=== PATIENT | male | born 1975 | race Caucasian/White ===

== ENCOUNTER 2022-07-01 08:39 | Inpatient (IN) | payer MEDICAID ==
[2022-07-01] VITALS (15 sets, daily range): BP systolic 120–143; BP diastolic 73–95
[~2022-07-01] VITALS: Ht 162.6 cm; Wt 96.6 kg
[~2022-07-01 08:39] MED LIST: METF-440 PO
--- NOTE | 2022-07-01 08:50 | NUR ---
BIB C/O DIZZINESS, HEADACHE, SOB, COUGH, NAUSEA, AND VOMITING. PT STATED HE STARTED TO FEEL THESE SYMPTOMS SINCE FRIDAY AND BECAME WORSE YESTERDAY. TOOK COVID TEST AT HOME, NEGATIVE. PT HAS HISTORY OF DKA, TAKE METFORMIN AND COMPLIANT WITH MEDEIAITON BUT STATES THAT HE DOES NOT CHECK HIS BLOOD SUGAR REGULARY. BLOOD SUAGR WAS 429 UPON ARRIVAL, MD AWARE. PT ATTACHED TO MONITOR, DR NORIEGA AT BEDSIDE. AWAITING MD ORDERS.
--- NOTE | 2022-07-01 08:52 | NUR ---
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 URINAL PROVIDED AT BEDSIDE.
--- NOTE | 2022-07-01 08:55 | NUR ---
IVONE Beck AC 20G. LABS DRAWN AND SENT.
[2022-07-01] MEDS ORDERED: IV NS 0.9% 1,000 ML BAG IV ONE ×2 (09:00→10:00)
[2022-07-01] MEDS ORDERED: ONDANSETRON HCL/PF 4 MG/2 ML VIAL IVP ONE (09:00)
[2022-07-01] MEDS ORDERED: ONDANSETRON HCL/PF 4 MG/2 ML VIAL ONE (09:00)
[2022-07-01 09:19] LABS: BASOPHILS % (AUTO) 0.4 % (0.0-2.0); EOSINOPHILS % (AUTO) 4.3 % (0.0-6.0); HEMATOCRIT 48 % (39-51); HEMOGLOBIN 16.4 g/dL (13.5-17.5); LYMPHOCYTES # (AUTO) 2.1 K/uL (0.8-4.8); LYMPHOCYTES % (AUTO) 21.8 % (20.0-44.0); MEAN CORPUSCULAR HGB CONC 34 g/dl (31.0-36.0); MEAN CORPUSCULAR VOLUME 93 fL (80-96); MONOCYTES # (AUTO) 0.5 K/uL (0.1-1.30); MONOCYTES % (AUTO) 5.6 % (2.0-12.0); NEUTROPHILS # (AUTO) 6.5 K/uL (1.8-8.9); NEUTROPHILS % (AUTO) 67.9 % (43.0-81.0); PLATELET COUNT (AUTO) 247 K/uL (150-450); RED BLOOD CELL COUNT(AUTO) 5.17 MIL/uL (4.5-6.0); WHITE BLOOD COUNT (AUTO) 9.5 K/uL (4.3-11.0)
--- NOTE | 2022-07-01 09:38 | NUR ---
Jojo sepulveda in [facility] - 07/01/22 at 1001 by VALENTÍN GAUTHIER (WIFE) [phone]
[2022-07-01 09:39] LABS: ALANINE AMINOTRANSFERASE 50 U/L (12-78); ALBUMIN 4.5 g/dL (3.4-5.0); ALKALINE PHOSPHATASE 138 U/L (46-116); ASPARTATE AMINOTRANSFERASE 23 U/L (15-37); BILIRUBIN,DIRECT 0.2 mg/dL (0.0-0.2); BILIRUBIN,TOTAL 0.9 mg/dL (0.2-1.0); CALCIUM, SERUM 9.2 mg/dL (8.5-10.1); CARBON DIOXIDE 12 mmol/L (21-32); CHLORIDE 96 mmol/L (98-107); CREATININE 1.3 mg/dL (0.6-1.3); POTASSIUM 4.4 mmol/L (3.5-5.1); SODIUM SERUM 129 mmol/L (136-145); UREA NITROGEN, BLOOD 13 mg/dL (7-18)
[2022-07-01 09:41] LABS: GLUCOSE 442 mg/dL (74-106)
[2022-07-01] MEDS ORDERED: ATOR10TA PO (09:59)
[2022-07-01] MEDS ORDERED: METF-440 PO (09:59)
[2022-07-01] MEDS ORDERED: INSULIN REGULAR, HUMAN 100 UNITS in IV NS 0.9% 100 ML IV PRN ×2 (10:00)
--- NOTE | 2022-07-01 10:05 | NUR ---
URINE COLLECTED AND SENT
[2022-07-01 10:36] LABS: CALCIUM, SERUM 8.2 mg/dL (8.5-10.1); CREATININE 1.2 mg/dL (0.6-1.3); POTASSIUM 4.6 mmol/L (3.5-5.1)
--- NOTE | 2022-07-01 10:39 | NUR ---
CALLED NURSING SUP REGARDING PT BED
[2022-07-01] MEDS ORDERED: ACETAMINOPHEN ES 500 MG TABLET ONE (10:49)
[2022-07-01] MEDS ORDERED: ACETAMINOPHEN ES 500 MG TABLET PO ONE (11:00)
--- NOTE | 2022-07-01 11:13 | NUR ---
room [facility]
--- NOTE | 2022-07-01 11:23 | NUR ---
REPORT GIVEN TO ABDIEL FOR KATIA
[2022-07-01] MEDS ORDERED: INSULIN REGULAR, HUMAN 100 UNIT in IV NS 0.9% 99 ML IV PRN ×2 (11:30)
[2022-07-01] MEDS ORDERED: ONDANSETRON HCL/PF 4 MG/2 ML VIAL IVP PRN (11:30)
[2022-07-01] MEDS ORDERED: MAG HYDROX/AL HYDROX/SIMETH 30 ML UDC PO PRN (11:30)
[2022-07-01] MEDS ORDERED: ACETAMINOPHEN 325 MG TABLET PO PRN (11:30)
[2022-07-01] MEDS ORDERED: ZOLPIDEM TARTRATE 5 MG TABLET PO PRN (11:30)
[2022-07-01] MEDS ORDERED: MAGNESIUM HYDROXIDE 30 ML UDC PO PRN (11:30)
[2022-07-01] MEDS ORDERED: Z GUARD REMEDY 4 OZ OINT TP PRN (11:30)
[2022-07-01 11:32] LABS: BILIRUBIN,URINE NEGATIVE (NEGATIVE); COLOR,URINE YELLOW (YELLOW); LEUKOCYTE ESTERASE ,URINE NEGATIVE (NEGATIVE); NITRITE, URINE NEGATIVE (NEGATIVE); PH,URINE 5.5 (5.0-8.0); PROTEIN,URINE TRACE mg/dl (NEGATIVE); UGLUCOSE >=1000 mg/dL (NEGATIVE); UROBILINOGEN,URINE 0.2 EU/dL (0.2)
--- NOTE | 2022-07-01 11:37 | NUR ---
BLOOD GLUCOSE 266, INSULIN DRIP TITRATED TO 3.99 PER PROTOCOL
--- NOTE | 2022-07-01 12:03 | NUR ---
REPORT FROM ABRAHAN LUCAS; PT. ARRIVED FROM E.R DEPT. ON INSULIN DRIP PER MD ORDERS; ALERT/ORIENTED; NO SSx OF DISTRESS NOTED AT THIS TIME; CALL LIGHT IN REACH. WILL CONTINUE TO MONITOR PT.
--- NOTE | 2022-07-01 12:05 | NUR ---
PT TRANSFERRED TO ICU WITH ACLS PROTOCOLS IN PLACE.
[2022-07-01 12:23] LABS: CALCIUM, SERUM 7.9 mg/dL (8.5-10.1); CREATININE 0.9 mg/dL (0.6-1.3); POTASSIUM 3.8 mmol/L (3.5-5.1)
--- NOTE | 2022-07-01 12:45 | NUR ---
RAO-JOSSE AT THE UNIT. AWARE OF PT. ADMISSION TO ICU; PT. IS OKAY FOR DM -DIET NOW
[2022-07-01] MEDS: PANTOPRAZOLE 40 MG VIAL IV SCH (12:59)
[2022-07-01 13:27] LABS: BACTERIA,URINE Few /HPF (None Seen); HYALINE CASTS, URINE Rare /LPF (None Seen); RBC,URINE 0-2 /HPF (0-2); SQUAMOUS EPITHELIAL CELL,UR Few /HPF (None Seen); WBC,URINE 0-2 /HPF (0-3)
[2022-07-01] MEDS: INSULIN GLARGINE, 100 UNIT/ML CARTRIDGE SQ SCH ×2 (14:16→21:40)
[2022-07-01 14:23] LABS: CALCIUM, SERUM 8.1 mg/dL (8.5-10.1); POTASSIUM 3.7 mmol/L (3.5-5.1)
[2022-07-01] MEDS ORDERED: BLOOD SUGAR DIAGNOSTIC 1 EACH STRIP IN SCH (15:00)
--- NOTE | 2022-07-01 15:17 | NUR ---
CHARGE NURSE SENT MESSAGE TO JOAO REGARDING ANION GAP VALUE.
--- NOTE | 2022-07-01 15:22 | NUR ---
MILITARY ADMINISTRATIVE TECHNICIAN-JOSSE WITH NEW ORDERS TO D/C INSULIN DRIP AND TO START INSULIN AGRESSIVE SCALE.
[2022-07-01 15:26] LABS: CALCIUM, SERUM 8.3 mg/dL (8.5-10.1); POTASSIUM 3.5 mmol/L (3.5-5.1)
[2022-07-01] MEDS ORDERED: *INSULIN REGULAR(HUMULIN R)HUM 100 UNIT/ML VIAL SQ PRN (15:30)
[2022-07-01] MEDS ORDERED: DEXTROSE 50%-WATER 50 ML DISP.SYRIN IV PRN (15:30)
[2022-07-01] MEDS: BLOOD SUGAR DIAGNOSTIC 1 EACH STRIP IN SCH ×2 (17:05→21:34)
[2022-07-01] MEDS: ATORVASTATIN 10 MG TABLET PO SCH (17:08)
[2022-07-01] MEDS: INSULIN REGULAR, HUMAN 100 UNIT/ML 3 ML VIAL SQ PRN (17:11)
--- NOTE | 2022-07-01 18:58 | NUR ---
PT. WAS TRANSFERRED PER PROTOCOL TO M/SURG UNIT -ROOM [phone]; BEDSIDE REPORT TO ISAIAH MORE RN.
--- NOTE | 2022-07-01 18:59 | NUR ---
PT. STABLE ON TRANSFER TO [facility]. CALL LIGHT IN REACH.
--- NOTE | 2022-07-01 19:30 | NUR ---
TRANSFER NOTES PT ARRIVED VIA WHEELCHAIR FROM ICU. AOx4, SETSWANA SPEAKING. ON RA AND TOLERATING WELL. NO SOB NOTED. NO S/SX OF RESPIRATORY DISTRESS NOTED. IV ACCESS IN LAC #20 AND RAC #20 RUNNING NS @150 ML/HR. SAFETY PRECAUTIONS IN PLACE: BED IN LOWEST, LOCKED POSITION, SIDERAILS UPx2, AND BRAKES ON. TABLE AND CALL LIGHT WITHIN REACH. WILL CONTINUE TO MONITOR.
[2022-07-01] MEDS: IV NS 0.9% 1,000 ML IV PRN (19:38)
[2022-07-02] MEDS: IV NS 0.9% 1,000 ML IV PRN (02:44)
[2022-07-02 06:09] LABS: BASOPHILS % (AUTO) 0.4 % (0.0-2.0); EOSINOPHILS % (AUTO) 12.7 % (0.0-6.0); HEMATOCRIT 38 % (39-51); HEMOGLOBIN 13.1 g/dL (13.5-17.5); LYMPHOCYTES # (AUTO) 2.4 K/uL (0.8-4.8); LYMPHOCYTES % (AUTO) 32.8 % (20.0-44.0); MEAN CORPUSCULAR HGB CONC 35 g/dl (31.0-36.0); MEAN CORPUSCULAR VOLUME 91 fL (80-96); MONOCYTES # (AUTO) 0.4 K/uL (0.1-1.30); MONOCYTES % (AUTO) 5.8 % (2.0-12.0); NEUTROPHILS # (AUTO) 3.5 K/uL (1.8-8.9); NEUTROPHILS % (AUTO) 48.3 % (43.0-81.0); PLATELET COUNT (AUTO) 170 K/uL (150-450); RED BLOOD CELL COUNT(AUTO) 4.16 MIL/uL (4.5-6.0); WHITE BLOOD COUNT (AUTO) 7.2 K/uL (4.3-11.0)
[2022-07-02] MEDS: BLOOD SUGAR DIAGNOSTIC 1 EACH STRIP IN SCH ×3 (06:30→18:43)
[2022-07-02] MEDS: INSULIN REGULAR, HUMAN 100 UNIT/ML 3 ML VIAL SQ PRN ×3 (06:35→18:41)
[2022-07-02 06:45] LABS: CALCIUM, SERUM 7.9 mg/dL (8.5-10.1); CREATININE 0.9 mg/dL (0.6-1.3); MAGNESIUM 2.1 mg/dL (1.8-2.4); PHOSPHORUS 2.1 mg/dL (2.5-4.9); POTASSIUM 3.1 mmol/L (3.5-5.1)
--- NOTE | 2022-07-02 07:35 | NUR ---
RN CLOSING NOTES PT STABLE. NO DISTRESS NOTED. ALL ORDERS CARRIED OUT. REPORT GIVEN TO DAYSHIFT RN FOR KATIA.
[2022-07-02] MEDS: PANTOPRAZOLE 40 MG VIAL IV SCH (08:23)
[2022-07-02] MEDS ORDERED: POTASSIUM CHLORIDE 20 MEQ TAB.PRT.SR PO ONE (09:00)
[2022-07-02] MEDS ORDERED: NEUTRA PHOS 1 POWD.PACKET PO ONE (11:30)
[2022-07-02 15:47] LABS: CALCIUM, SERUM 8.1 mg/dL (8.5-10.1); CREATININE 0.8 mg/dL (0.6-1.3); POTASSIUM 3.2 mmol/L (3.5-5.1)
[2022-07-02 15:59] VITALS: BP 125/77
[2022-07-02] MEDS: ATORVASTATIN 10 MG TABLET PO SCH (18:00)
--- NOTE | 2022-07-02 18:43 | NUR ---
STUDY MANAGER NOTES PATIENT MEDICALLY STABLE FOR DISCHARGE. DISCHARGE INSTRUCTIONS GIVEN TO PATIENT. PATIENT VERBALIZED UNDERSTANDING. EXIT CARE PACKET PROVIDED. ALL BELONGINGS ACCOUNTED FOR AND DOCUMENTS SIGNED. IV ACCESS REMOVED AND ID BAND REMOVED. PATIENT LEFT HOSPITAL IN PRIVATE CAR ACCOMPANIED BY FAMILY.
[2022-07-03] MEDS ORDERED: PANTOPRAZOLE 40 MG TABLET.DR PO SCH (07:30)
== END 2022-07-02 18:43 | disposition home or self-care (01) | DRG 420 ==
LOC: ER 08:49 → ICU 11:51 → MED 18:55
PROVIDERS: ADMIT Nurse Practitioner Acute Care; ATTEND Internal Medicine
DX: E11.10 Type 2 diabetes mellitus with ketoacidosis without coma (principal); E87.1 Hypo-osmolality and hyponatremia; E86.0 Dehydration; Z79.84 Long term (current) use of oral hypoglycemic drugs; Z20.822 Contact with and (suspected) exposure to COVID-19; Z79.899 Other long term (current) drug therapy; E78.5 Hyperlipidemia, unspecified; E66.9 Obesity, unspecified; Z68.36 Body mass index [BMI] 36.0-36.9, adult
CPT/HCPCS: 36415; 71045-TC; 80048-TC; 80061-TC; 80076-TC; 81001; 82962-TC; 83735-TC; 84100-TC; 84484-TC; 85025-TC; 87081-TC; C9113; C9803; G0378; J1815; J2405; J7030

== ENCOUNTER 2022-07-04 19:57 | Emergency (ER) | payer MEDICAID ==
[~2022-07-04] VITALS: Ht 162.6 cm; Wt 122.5 kg
[~2022-07-04 19:57] MED LIST changes: +ATOR10TA PO
--- NOTE | 2022-07-04 20:20 | NUR ---
BIBS. DIZZYNESS & BLURRED VISION. D/C FROM HOSPITAL 07/02/22. NEEDS INSULIN PRESCRIPTION. PT A/OX4. TOELRATING R/A WELL WITH NO SOB. CONNECTED PT TO POX AND MONITOR. SAFETY MEASURES IN PLACE.
[2022-07-04] MEDS ORDERED: IV NS 0.9% 1,000 ML IV ONE (20:30)
--- NOTE | 2022-07-04 20:40 | NUR ---
LAC #20G S/L BLOOD COLLECTED AND SENT TO LAB
[2022-07-04 21:05] LABS: ABG BASE EXCESS 0.8 mmol/L; ABG PCO2 36.9 mmHg (35.0-45.0); ABG PH 7.442 (7.350-7.450); ABG PO2 78.3 mmHg (75.0-100.0); COHb 0.2 % (0.5-1.5); MetHb 0.3 % (0.0-1.5); O2Hb 94.9 % (94.0-97.0); SITE, ABG Left Radial; VENT MODE, BG RA
--- NOTE | 2022-07-04 21:05 | NUR ---
G COLLECTED BY RT AND AWARE OF RESULTS
[2022-07-04 21:19] LABS: CALCIUM, SERUM 9.2 mg/dL (8.5-10.1); CARBON DIOXIDE 29 mmol/L (21-32); CHLORIDE 102 mmol/L (98-107); CREATININE 0.7 mg/dL (0.6-1.3); GLUCOSE 235 mg/dL (74-106); POTASSIUM 4.1 mmol/L (3.5-5.1); SODIUM SERUM 137 mmol/L (136-145); UREA NITROGEN, BLOOD 15 mg/dL (7-18)
[2022-07-04 21:43] LABS: BILIRUBIN,URINE NEGATIVE (NEGATIVE); COLOR,URINE YELLOW (YELLOW); LEUKOCYTE ESTERASE ,URINE NEGATIVE (NEGATIVE); NITRITE, URINE NEGATIVE (NEGATIVE); PROTEIN,URINE NEGATIVE (NEGATIVE); UGLUCOSE 500 MG/DL mg/dL (NEGATIVE); UROBILINOGEN,URINE 0.2 EU/dL (0.2)
[2022-07-04 21:45] LABS: BASOPHILS % (AUTO) 0.5 % (0.0-2.0); EOSINOPHILS % (AUTO) 8.5 % (0.0-6.0); HEMATOCRIT 38 % (39-51); LYMPHOCYTES # (AUTO) 2.6 K/uL (0.8-4.8); LYMPHOCYTES % (AUTO) 38.6 % (20.0-44.0); MEAN CORPUSCULAR HGB CONC 35 g/dl (31.0-36.0); MEAN CORPUSCULAR VOLUME 91 fL (80-96); MONOCYTES # (AUTO) 0.4 K/uL (0.1-1.30); MONOCYTES % (AUTO) 5.5 % (2.0-12.0); NEUTROPHILS # (AUTO) 3.2 K/uL (1.8-8.9); NEUTROPHILS % (AUTO) 46.9 % (43.0-81.0); PLATELET COUNT (AUTO) 174 K/uL (150-450); RED BLOOD CELL COUNT(AUTO) 4.14 MIL/uL (4.5-6.0); WHITE BLOOD COUNT (AUTO) 6.9 K/uL (4.3-11.0)
[2022-07-04 22:03] LABS: BACTERIA,URINE None seen /HPF (None Seen); RBC,URINE 0-2 /HPF (0-2); SQUAMOUS EPITHELIAL CELL,UR 0-2 /HPF (None Seen); WBC,URINE 0-2 /HPF (0-3)
[2022-07-04] MEDS ORDERED: INSU100I30 SQ ×2 (23:02)
--- NOTE | 2022-07-04 23:09 | NUR ---
Patient discharged to home in stable condition. Written and verbal after care instructions given. Patient verbalizes understanding of instruction. IV removed. Catheter intact and site benign. Pressure and 4x4 applied to site. No bleeding noted. pt ambulatory with a steady gait
[2022-07-05 01:07] VITALS: BP 125/71
== END 2022-07-04 23:09 | disposition home or self-care (01) ==
LOC: ER 20:02
DX: E11.65 Type 2 diabetes mellitus with hyperglycemia (principal); Z79.84 Long term (current) use of oral hypoglycemic drugs; Z79.899 Other long term (current) drug therapy
CPT/HCPCS: 99283; 96360; 85025; 80048; 82010; 81001; 36415; 82962; 36600; J7030